=== PATIENT | female | born 1995 | race Caucasian/White ===

== ENCOUNTER 2018-12-22 16:01 | Observation (INO) | payer BC ==
[2018-12-22 18:30] LABS: Basophils # (A) 0.1 k/uL (0-0.2); Basophils % (A) 1 %; Eosinophils # (A) 0.1 k/uL (0-0.7); Eosinophils % (A) 1 %; HCT 40.7 % (34.0-46.0); HGB 14.2 gm/dL (11.4-16.0); Lymphocytes # (A) 4.1 k/uL (1.0-4.8); Lymphocytes % (A) 36 %; MCH 30.4 pg (25.0-35.0); MCHC 34.8 g/dL (31.0-37.0); MCV 87.3 fL (80.0-100.0); Mean Platelet Volume 6.8; Monocytes # (A) 0.5 k/uL (0-1.0); Monocytes % (A) 4 %; Neutrophils # (A) 6.4 k/uL (1.3-7.7); Neutrophils % (A) 57 %; Platelet Count 387 k/uL (150-450); RBC 4.66 m/uL (3.80-5.40); WBC 11.4 k/uL (3.8-10.6)
[2018-12-22 18:41] LABS: HCG,Qualitative Serum Not Detected
[2018-12-22 18:45] LABS: African American GFR (CKD) >90 (>60 ml/min/1.73 sqM); Anion Gap 12 mmol/L; Blood Urea Nitrogen 13 mg/dL (7-17); Calcium 9.9 mg/dL (8.4-10.2); Carbon Dioxide 23 mmol/L (22-30); Chloride 104 mmol/L (98-107); Glucose 95 mg/dL (74-99); Sodium 139 mmol/L (137-145)
--- NOTE | 2018-12-22 19:31 | CT ---
EXAMINATION TYPE: CT brain wo con DATE OF EXAM: 12/22/2018 COMPARISON: None HISTORY: Intermittent vision loss. PT unable to remove one earring CT DLP: 1114.4 mGycm. Automated Exposure Control for Dose Reduction was Utilized. TECHNIQUE: CT scan of the head is performed without contrast. FINDINGS: Ventricles have normal size. There is no mass effect nor midline shift. There is no sign of intracranial hemorrhage. The calvarium is intact. IMPRESSION: Negative CT scan of the brain.
--- NOTE | 2018-12-22 20:49 | ED ---
General Adult HPI - General Chief complaint: Neuro Symptoms/Deficit Stated complaint: bilat vision loss Time Seen by Provider: 12/22/18 17:22 Source: patient Mode of arrival: ambulatory Limitations: no limitations - History of Present Illness Initial comments: 23-year-old female presenting with visual deficits. Patient states that one week prior she was having intermittent vision loss in both of her eyes. She states it spontaneously resolved but returned today at noon. She states it looked like a mckeon veil was coming down as a shade over her right eye. It then resolved spontaneously. She went to see an entry level account executive who was not able to find any cause and referred her to the ED for further evaluation. Patient has had "flashers and floaters" for a long time but has never had these symptoms before. She denies eye pain. She is currently asymptomatic. No family history of similar symptoms or MS. Patient denies any current headache but states at baseline she normally has a mild dull headache. Denies focal weakness or numbness. Denies F/C. - Related Data Home Medications Medication Instructions Recorded Confirmed Isabloom 0.15-0.03 1 tab PO HS 12/22/18 12/22/18 Allergies Allergy/AdvReac Type Severity Reaction Status Date / Time No Known Allergies Allergy Verified 12/22/18 18:40 Review of Systems ROS Statement: Those systems with pertinent positive or pertinent negative responses have been documented in the HPI. Review of Systems Constitutional: Denies fever, chills Eyes: Positive change in vision, Denies pain Ears, nose, mouth, throat: Denies headaches, Denies sore throat Cardiovascular: Denies chest pain. Denies palpitations Respiratory: Denies shortness of breath, Denies cough Gastrointestinal: Denies abdominal pain. Denies nausea, vomiting, diarrhea. Genitourinary: Denies hematuria, Denies infections Musculoskeletal: Denies pain, Denies swelling Integumentary: Denies rash Neurological: Denies headache, focal weakness, focal numbness Psychiatric: Denies anxiety, Denies depression Hematologic/Lymphatic: Denies easy bleeding or bruising ROS Other: All systems not noted in ROS Statement are negative. Past Medical History Past Medical History: No Reported History History of Any Multi-Drug Resistant Organisms: None Reported Past Surgical History: Orthopedic Surgery Additional Past Surgical History / Comment(s): lt knee Past Psychological History: No Psychological Hx Reported Smoking Status: Never smoker Past Alcohol Use History: None Reported Past Drug Use History: None Reported General Exam - General Exam Comments Initial Comments: General: Awake, alert, No acute Distress HENT: Normocephalic. Atraumatic Eyes: PERRL. EOMI. No scleral icterus. No injected conjunctiva. No papilledema bilaterally. No nystagmus. Neck: Full ROM Chest/Lungs: Clear to auscultation bilaterally. No wheezing, rhonchi, or rales Cardiac: Regular rate, rhythm. No murmurs or rubs Abdomen/GI: Soft, nontender, nondistended. No rebound, guarding, or rigidity. Musculoskeletal: Full ROM Skin: Warm, dry, intact Neurologic: A/Ox3, no weakness, no sensory deficit, no abnormal gait, no c oordination deficit Limitations: no limitations Course Vital Signs 12/22/18 12/22/18 16:12 19:38 Temperature 97.9 F 99.1 F Pulse Rate 83 85 Respiratory 16 18 Rate Blood Pressure 129/83 127/88 O2 Sat by Pulse 99 98 Oximetry Medical Decision Making - Medical Decision Making 23 yoF ending with intermittent visual changes. Initial exam the patient is awake, alert, no acute distress. VSS. Her neck consistent with his CVA. At this and the patient is actually asymptomatic. Her exam is unremarkable. Unlikely intracranial hypertension as the patient has no papilledema and currently no headache. Abdomen very workup and her CT were negative. Patient has no outpatient follow-up no primary care provider. I spoke with Dr. Pratt placing the patient observation for MRI and neurology consult. He was agreeable. Patient is stable for transfer to floor. - Lab Data Result diagrams: 12/22/18 18:04 12/22/18 18:04 Lab Results 12/22/18 12/22/18 Range/Units 18:04 18:04 WBC 11.4 H (3.8-10.6) k/uL RBC 4.66 (3.80-5.40) m/uL Hgb 14.2 (11.4-16.0) gm/dL Hct 40.7 (34.0-46.0) % MCV 87.3 (80.0-100.0) fL MCH 30.4 (25.0-35.0) pg MCHC 34.8 (31.0-37.0) g/dL RDW 12.0 (11.5-15.5) % Plt Count 387 (150-450) k/uL Neutrophils % 57 % Lymphocytes % 36 % Monocytes % 4 % Eosinophils % 1 % Basophils % 1 % Neutrophils # 6.4 (1.3-7.7) k/uL Lymphocytes # 4.1 (1.0-4.8) k/uL Monocytes # 0.5 (0-1.0) k/uL Eosinophils # 0.1 (0-0.7) k/uL Basophils # 0.1 (0-0.2) k/uL Sodium 139 (137-145) mmol/L Potassium 4.0 (3.5-5.1) mmol/L Chloride 104 (98-107) mmol/L Carbon Dioxide 23 (22-30) mmol/L Anion Gap 12 mmol/L BUN 13 (7-17) mg/dL Creatinine 0.94 (0.52-1.04) mg/dL Est GFR (CKD-EPI)AfAm >90 (>60 ml/min/1.73 sqM) Est GFR (CKD-EPI)NonAf 87 (>60 ml/min/1.73 sqM) Glucose 95 (74-99) mg/dL Calcium 9.9 (8.4-10.2) mg/dL HCG, Qual Not Detected Disposition Clinical Impression: Vision changes Disposition: ADMITTED IP TO THIS [facility] Is patient prescribed a controlled substance at d/c from ED?: No Decision to Admit Reason: Admit from EC Decision Date: 12/22/18 Decision Time: 21:11
[2018-12-22] MEDS ORDERED: NALOXONE 0.4 MG/ML 1 ML VIAL IV PRN (21:04)
[2018-12-22 22:51] VITALS: BMI 31.3
[2018-12-22 23:11] VITALS: RESP 16
--- NOTE | 2018-12-23 09:42 | P.CNNES ---
History of Present Illness Consult date: 12/23/18 Reason for Consult: Visual deficit Chief complaint: Intermittent visual loss in both of her eyes History of Present Illness: HISTORY OF PRESENT ILLNESS: Thank you for allowing me to evaluate Ms. Feli Eaton is a 24-year-old R-handed woman with past medical history of legal blindness of R eye presenting with bilateral visual deficit x1 week. Patient states that about 1 week ago, she had an episode of having many floaters in her both eyes for a couple of hours where she couldn't read. She went to see an blending tank helper yesterday, where her pupils were dilated, as she was told no abnormal findings were noted on eye exam. Yesterday, patient had an episode where there was evident opacity in the right upper visual field in the right eye, like a curtain falling down, that lasted for several seconds and it went away. Patient denies any pain with eye movement, no complete vision loss, and no color desaturation. Patient reports that there was may be some mild tingling in her hands and difficulty making a fist last week when she had the floaters. patient did notice some RUE weakness yesterday after the eye symptom. Otherwise, denies pain with eye movement, numbness or tingling, double vision, headache. Patient does have mild temporal headache often times, but no photophobia, phonophobia, nausea, vomiting associated with it. She always attributed it to stress and lack of sleep. Regarding her right eye blindness, patient states that she is able to still see figures and light in color, but she is not able to see things clearly. They first noticed that she couldn't see quite well and her right eye when she was in preschool. There was no in-depth workup done for this finding, she was a child, and patient denies ever getting an MRI of the head. No recent sickness, fever, nausea, abdominal pain, diarrhea, constipation, coughing, sneezing. patient went to [place] for a short getaway. PAST MEDICAL HISTORY: Legally blind in R eye since PAST SURGICAL HISTORY: L knee ACL repair HOME MEDICATIONS: control pills ALLERGIES: NKDA SOCIAL HISTORY: Never smoker. Denies EtOH/drug abuse history. Currently a law school student. FAMILY HISTORY: Father with DM and HTN. Paternal aunt had a similar eye issue where she was legally blind in one eye since REVIEW OF SYSTEMS: The 14 systems are reviewed and no additional points are identified compared to the review of systems documented history and physical PHYSICAL EXAMINATION: VITAL SIGNS: T 98.2 HR 90 RR 16 BP 118/79 O2 sat 97% on RA GEN.: NAD, pleasant and cooperative HEENT: NCAT, sclera without icterus NECK: Supple, no carotid bruit SKIN AND EXTREMITIES: Warm to touch, no edema NEURO: MENTAL STATUS: Patient alert and oriented to self, place, time. Able to name the current president. Speech fluent, able to name and repeat, following all commands readily. No right and left disorientation, neglect. CRANIAL NERVES II THROUGH XII: II: Pupils are equal and reactive to light symmetrically. No afferent pupillary defect. Visual velásquez are intact. III, IV, : No ptosis. Extraocular movements full. No nystagmus. V: Facial sensation intact from V1-3. VII. No clear facial asymmetry. VIII: Hearing intact to finger rub bilaterally. IX, X: Symmetric palate elevation. XI: Shoulder sh rug intact. XII: Tongue midline without fasciculation or atrophy. MOTOR: Normal bulk/tone. No pronator drift or tremor. Strength is 5/5 throughout all 4 extremities. SENSORY: Intact to light touch, temperature, pinprick in all 4 extremities. Romberg is negative. REFLEXES: 2+ throughout. Toes are downgoing. No clonus. Audie's is absent COORDINATION: Finger to nose and heel to tapia intact. No dysmetria. Rapid alternating movements with good speed and accuracy. GAIT: Narrow-based and stable. Able to toe/heel/tandem walk DIAGNOSTIC TESTING: LABORATORY: WBC 11.4 Hemoglobin 14.2 platelet 387 sodium 139 potassium 4.0 chloride 104 bicarb 23 BUN 13 creatinine 0.94 glucose 95 hCG negative IMAGING: CT brain without contrast 12/22/2018: Negative CT of the brain ASSESSMENT: Ms. Eaton is a 24-year-old R-handed woman with past medical history of legal blindness of R eye presenting with bilateral visual deficit with one episode of many floaters in both eyes 1 week ago and one episode of curtain falling down half way in her R eye yesterday along with some RUE weakness and previous episodes of numbness/tingling/weakness in her b/l hands. Patient with mild chronic headache with no classic migrainous symptoms but her vision symptoms can be a migrainous symptom. Patient also very young, with other neurologic symptoms varying in time, and as such, multiple sclerosis is in the differential. RECOMMENDATIONS: 1. MRI brain w/ and w/o contrast 2. Vitamin D level 3. I will review imaging today and/or over the weekend and make recommendations. Neurology is not available over the weekend in-house. However, feel free to [employer] message me over the weekend if you have any questions or concerns Past Medical History Past Medical History: No Reported History History of Any Multi-Drug Resistant Organisms: None Reported Past Surgical History: Orthopedic Surgery Additional Past Surgical History / Comment(s): lt knee Past Psychological History: No Psychological Hx Reported Smoking Status: Never smoker Past Alcohol Use History: None Reported Past Drug Use History: None Reported Medications and Allergies Home Medications Medication Instructions Recorded Confirmed Type Isabloom 0.15-0.03 1 tab PO HS 12/22/18 12/22/18 History Allergies Allergy/AdvReac Type Severity Reaction Status Date / Time No Known Allergies Allergy Verified 12/22/18 18:40 Physical Examination - Vital Signs Vital Signs: Vital Signs Temp Pulse Pulse Resp BP BP Pulse Ox 12/23/18 05:34 98.2 F 90 16 118/79 97 12/22/18 21:55 98.9 F 95 16 127/80 92 L 12/22/18 19:38 99.1 F 85 18 127/88 98 12/22/18 16:12 97.9 F 83 16 129/83 99 Intake and Output 12/22/18 12/23/18 12/23/18 22:59 06:59 14:59 Other: Voiding Method Toilet # Voids 1 Weight 72.711 kg Results - Laboratory Findings CBC and BMP: 12/22/18 18:04 12/22/18 18:04 Abnormal Lab Findings: Abnormal Labs 12/22/18 18:04 WBC 11.4 H
--- NOTE | 2018-12-23 12:45 | MR ---
EXAMINATION TYPE: MR brain wo/w con DATE OF EXAM: 12/23/2018 COMPARISON: CT brain dated 12/22/2018 HISTORY: MS, right eye visual defect. TECHNIQUE: Multiplanar, multisequence images of the brain and brainstem is performed without and with IV contras t, utilizing 7 mL intravenous Gadavist . FINDINGS: Diffusion weighted images demonstrate no evidence of a recent infarct or other diffusion ab normality. There is no extra-axial fluid collection or significant white matter signal abnormality. The ventricular system and cisternal spaces are normal in size and appearance. The brain volume is age appropriate. Midline structures demonstrate normal morphology. Small Rathke cleft cyst is noted. 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 The craniocervical junction appears within normal limits. Post contrast images demonstrate no abnormal enhancement. The dural venous sinuses appear patent. Th e visualized sinuses demonstrate mild mucosal thickening of the maxillary and ethmoid sinuses with ri ght maxillary 1 cm mucosal retention cyst. Remainder the paranasal sinuses and mastoid air cells are well aerated. Partial opacification is seen of the bilateral mastoid air cells. There is a very trace amount of fluid surrounding the optic nerves. No partially empty sella turcica tonsillar herniation. Globes are symmetric and lenses are in place. No intraconal or extraconal mass is seen. IMPRESSION: 1. No abnormal enhancement of the optic nerves, no intraconal or extraconal mass, no MR evidence of d emyelinating disease. No abnormal intracranial enhancing mass. 2. Very trace amount of fluid surrounding the optic nerves, which can be seen in increased intracrani al pressure (pseudotumor cerebri) however this may also be an incidental finding as no other MR seque la of increased intracranial pressure is seen.
[2018-12-23 14:12] VITALS: BP 126/80; PULSE 87; TEMP 98.4
--- NOTE | 2019-01-01 21:42 | P.HPIM ---
History of Present Illness H&P Date: 12/23/18 Chief Complaint: Right eye vision loss Patient is a 29-year-old female with a known history of legal blindness of right eye presents to ER with complaints of bilateral visual problems for the past 1 week. Patient says that yesterday she had many floaters in the both eyes and felt like curtain falling down and could not read which made her to go to her tray checker. Patient was examined by ophthalmology but no abnormality of the retina was detected and referred to ER for evaluation of possible acute stroke. Denied any headache or dizziness. Patient also reports that some mild tingling of her hands and difficulty making a fist last week when she had the floaters. Denied any numbness or tingling currently. No double vision currently. No chest pain or shortness of breath or heart beating of fast. Regarding her right eye blindness, patient states that she is able to still see figures and light in color, but she is not able to see things clearly. They first noticed that she couldn't see quite well and her right eye when she was in preschool. There was no in-depth workup done for this finding, she was a child, and patient denies ever getting an MRI of the head. No recent sickness, fever, nausea, abdominal pain, diarrhea, constipation, coughing, sneezing. patient went to [place] for a short getaway. Blood pressure is controlled. CT head is negative for any acute process in the ER. Review of Systems Constitutional: Patient denies any fever or chills . No generalized weakness or weight loss. Abdomen: Patient denied nausea vomiting and diarrhea and abdominal pain. Cardiovascular: Patient denies any chest pain or short of breath no palpitations. Respiratory: patient denied any cough is from production. No shortness of breath Neurologic: Patient denied any numbness or tingling headache. Musculoskeletal: Patient denies any complaints of joint swelling or deformity. Skin: Negative Psychiatric: Negative Endocrine: No heat or cold intolerance. No recent weight gain. Genitourinary: No dysuria or hematuria. All other 14 point ROS negative except the above Past Medical History Past Medical History: No Reported History History of Any Multi-Drug Resistant Organisms: None Reported Past Surgical History: Orthopedic Surgery Additional Past Surgical History / Comment(s): lt knee Past Psychological History: No Psychological Hx Reported Smoking Status: Never smoker Past Alcohol Use History: None Reported Past Drug Use History: None Reported Medications and Allergies Home Medications Medication Instructions Recorded Confirmed Type Isabloom 0.15-0.03 1 tab PO HS 12/22/18 12/22/18 History Allergies Allergy/AdvReac Type Severity Reaction Status Date / Time No Known Allergies Allergy Verified 12/22/18 18:40 Physical Exam Vitals: Vital Signs Temp Pulse Pulse Resp BP BP Pulse Ox 12/23/18 05:34 98.2 F 90 16 118/79 97 12/22/18 21:55 98.9 F 95 16 127/80 92 L 12/22/18 19:38 99.1 F 85 18 127/88 98 12/22/18 16:12 97.9 F 83 16 129/83 99 Intake and Output 12/22/18 12/23/18 12/23/18 22:59 06:59 14:59 Other: Voiding Method Toilet # Voids 1 Weight 72.711 kg PHYSICAL EXAMINATION: Patient is lying in the bed comfortably, no acute distress, awake alert and oriented.. HEENT: Normocephalic. Neck is supple. Pupils reactive. Nostrils clear. Oral cavity is moist. Ears reveal no drainage. Neck reveals no JVD, carotid bruits, or thyromegaly. CHEST EXAMINATION: Trachea is central. Symmetrical expansion. Lung velásquez clear to auscultation and percussion. CARDIAC: Normal S1, S2 with no gallops. No murmurs ABDOMEN: Soft. Bowel sounds normal. No organomegaly. No abdominal bruits. Extremities: reveal no edema. No clubbing or cyanosis Neurologically awake, alert, oriented x3 with well-coordinated movements. No focal deficits noted Skin: No rash or skin lesions. Psychiatric: Coperative. Nonsuicidal Musculoskeletal: No joint swelling or deformity. Normal range of motion. Results CBC & Chem 7: 12/22/18 18:04 12/22/18 18:04 Labs: Abnormal Lab Results - Last 24 Hours (Table) 12/22/18 Range/Units 18:04 WBC 11.4 H (3.8-10.6) k/uL Thrombosis Risk Factor Assmnt - DVT/VTE Prophylaxis DVT/VTE Prophylaxis: Pharmacologic Prophylaxis ordered - Choose All That Apply Any of the Below Risk Factors Present?: No Other Risk Factors: No Other congenital or acquired thrombophilia - If yes, enter type in comment: No Thrombosis Risk Factor Assessment Level: Very Low Risk Assessment and Plan Assessment: Bilateral visual deficit with symptoms of curtain falling down. Evaluation by ophthalmology as an outpatient was negative. 1 episode of floaters 1 week ago Current history legal blindness to right eye DVT prophylaxis with daily ambulation Plan: Patient will be continued on telemetry monitoring. Continue with neuro checks. Neurology was consulted. MRI of the brain with and without contrast was ordered as well as vitamin D levels. Continue to follow closely and further recommendations based on the clinical course. Discussed with the family at the bedside. Time with Patient: Greater than 30
--- NOTE | 2019-01-01 21:46 | P.DS ---
Providers Date of admission: 12/22/18 21:04 Expected date of discharge: 12/23/18 Attending physician: Bertrand Pratt MD Consults: 12/22/18 21:07 Consult Physician Routine Consulting Provider: Vida Ojeda Consult Reason/Comments: Visual changes Do you want consulting provider notified?: Yes, Notify in am Primary care physician: Stated None Hospital Course: Discharge diagnosis Bilateral visual deficit with symptoms of curtain falling down. Evaluation by ophthalmology as an outpatient was negative. MRI negative. No active symptoms currently. 1 episode of floaters 1 week ago Current history legal blindness to right eye DVT prophylaxis with daily ambulation Hospital course. Patient is a 29-year-old female with a known history of legal blindness of right eye presents to ER with complaints of bilateral visual problems for the past 1 week. Patient says that yesterday she had many floaters in the both eyes and felt like curtain falling down and could not read which made her to go to her jogger operator. Patient was examined by ophthalmology but no abnormality of the retina was detected and referred to ER for evaluation of possible acute stroke. Denied any headache or dizziness. Patient also reports that some mild tingling of her hands and difficulty making a fist last week when she had the floaters. Denied any numbness or tingling currently. No double vision currently. No chest pain or shortness of breath or heart beating of fast. Regarding her right eye blindness, patient states that she is able to still see figures and light in color, but she is not able to see things clearly. They first noticed that she couldn't see quite well and her right eye when she was in preschool. There was no in-depth workup done for this finding, she was a child, and patient denies ever getting an MRI of the head. No recent sickness, fever, nausea, abdominal pain, diarrhea, constipation, coughing, sneezing. patient went to [place] for a short getaway. Blood pressure is controlled. CT head is negative for any acute process in the ER. Patient was continued on telemetry monitoring. Continued with neuro checks. Neurology was consulted. MRI of the brain with and without contrast was ordered as well as vitamin D levels. MRI brain with and without contrast 12/23/2018: No abnormal enhancement of the optic nerves, no intraconal or extraconal masses, no MR evidence of demyelinating disease. Very trace amount of fluid surrounding the optic nerve, which can be seen in increased neutrophil pressure but this may be in a single finding. No other MR sequela of increased intracranial pressure is seen. Patient was advised to come to ER if any new symptoms and adjust. Otherwise patient improved clinically and denied any complaints of visual problems at this time and is at baseline. Patient was cleared by neurology as well.. Discharge physical examination was done and vitals reviewed. Patient Condition at Discharge: Stable Plan - Discharge Summary Discharge Rx Participant: Yes New Discharge Prescriptions: Continue Isabloom 0.15-0.03 1 tab PO HS Discharge Medication List Isabloom 0.15-0.03 1 tab PO HS 12/22/18 [History] Follow up Appointment(s)/Referral(s): None,Stated [Primary Care Provider] - 1-2 days Patient Instructions/Handouts: [facility] (GEN) Discharge Disposition: HOME SELF-CARE
== END 2018-12-23 15:48 | disposition home or self-care (01) ==
LOC: EC 16:01 → 4MS4W 21:04
PROVIDERS: ADMIT Internal Medicine; ATTEND Internal Medicine
DX: H53.8 Other visual disturbances (principal); H54.8 Legal blindness, as defined in USA; H43.393 Other vitreous opacities, bilateral; R20.2 Paresthesia of skin; R20.0 Anesthesia of skin; R51 Headache; R53.1 Weakness
CPT/HCPCS: 99285; 36415; 80048; 85025; 84703; 82306; 70450; 70553; G0378 ×2; A9585

== ENCOUNTER → 2019-02-17 | Outpatient (CLI) | payer BC ==
--- NOTE | 2019-02-17 18:28 | US ---
EXAMINATION TYPE: US carotid duplex BILAT DATE OF EXAM: 02/17/2019 COMPARISON: NONE CLINICAL HISTORY: I77.3 Arterial fibromuscular dysplasia. EXAM MEASUREMENTS: RIGHT: Peak Systolic Velocity (PSV) cm/sec ----- Right CCA: 71.0 ----- Right ICA: 76.3 ----- Right ECA: 83.9 ICA/CCA ratio: 1.1 RIGHT: End Diastole cm/sec ----- Right CCA: 27.0 ----- Right ICA: 37.0 ----- Right ECA: 16.6 LEFT: Peak Systolic Velocity (PSV) cm/sec ----- Left CCA: 83.2 ----- Left ICA: 72.1 ----- Left ECA: 68.5 ICA/CCA ratio: 0.9 LEFT: End Diastole cm/sec ----- Left CCA: 29.3 ----- Left ICA: 34.4 ----- Left ECA: 18.7 VERTEBRALS (direction of flow): Right Vertebral: Antegrade Left Vertebral: Antegrade Rhythm: Normal No atherosclerotic changes, no elevated velocities. IMPRESSION: 1. No significant hemodynamic stenosis. Criteria for Assigning % of Stenosis / Diameter reduction (Estimation based on the indirect measurements of the internal carotid artery velocities (ICA PSV). 1. Normal (no stenosis)=ICA PSV < 125 cm/s: ratio < 2.0: ICA EDV<40 cm/s. 2. Less than 50% stenosis=ICA PSV < 125 cm/s: ratio < 2.0: ICA EDV<40 cm/s. 3. 50 to 69% stenosis=ICA PSV of 125 to 230 cm/s: ration 2.0 ? 4.0: ICA EDV 40-100 cm/s. 4. Greater than 70% stenosis to near occlusion= ICA PSV > 230 cm/s: ratio > 4.0: ICA EDV > 100 cm/s. 5. Near occlusion= ICA PSV velocities may be low or undetectable: variable ratio and ICA EDV. 6. Total occlusion=unable to detect flow.
== END | disposition home or self-care (01) ==
LOC: RADUSMAIN 17:37
PROVIDERS: ATTEND Psychiatry & Neurology Neurology
DX: I77.3 Arterial fibromuscular dysplasia (principal); H53.9 Unspecified visual disturbance
CPT/HCPCS: 93880